=== PATIENT | female | born 1985 | race Caucasian/White ===

== ENCOUNTER → 2023-02-14 11:36 | Outpatient (CLI) | payer OTHER, SELFPAY ==
--- NOTE | ~2023-02-14 | US_ITS ---
Thyroid ultrasound. Clinical History: Enlarged thyroid gland Findings: Real-time sonography of the thyroid gland was performed. The right lobe measures 4.4 x 1.4 x 1.4 cm. The left lobe measures 4.0 x 1.4 x 1.4 cm. The isthmus is 2 mm in AP diameter. There is a hypoechoic solid nodule at the posterior aspect of the left upper pole. Impression: Subcentimeter thyroid nodule, as above, for which no further follow-up is required.. Reviewed, dictated and finalized at location M. [facility] PHLEBOTOMIST PART TIME Impression: Subcentimeter thyroid nodule, as above, for which no further follow-up is requi red..
== END ==
PROVIDERS: PCP Nurse Practitioner; Visit Provider Nurse Practitioner
DX: E04.9 Nontoxic goiter, unspecified (principal)
CPT/HCPCS: 76536

== ENCOUNTER 2024-09-17 15:58 | Emergency (ER) | payer OTHER, SELFPAY ==
--- NOTE | ~2024-09-17 | XR_ITS ---
EXAMINATION: XR chest 2V 09/17/2024 16:23 INDICATION: Cough and shortness of breath PROCEDURE: 2 view chest COMPARISON: No prior studies for comparison. FINDINGS: The lungs are clear. The cardiomediastinal silhouette is within normal limits. There are no pleural effusions. There is no pneumothorax suspected. IMPRESSION: 1: NO ACUTE CARDIOPULMONARY DISEASE. Reviewed, dictated and finalized at location A.
--- OUTSIDE RECORDS SUMMARY | 2024-09-17 16:01 | XMS_ITS | Clinical Summary ---
Author Organization [facility] Address [facility] [place] [address] Care Team Providers Care Coordinate Measuring Machine Operator Name Role Phone Summer Deleon NP Primary Care Provider [phone] Allergies No known active allergies Medications intrauterine copper (PARAGARD) IUD 1 each by Intrauterine route once. Active melatonin 5 MG tablet Take 1 tablet (5 mg total) by mouth nightly as needed. Active cranberry 450 MG Tab tablet Take 1 tablet (450 mg total) by mouth. Active Ascorbic Acid (VITAMIN C OR) Activ e VITAMIN D OR Active APPLE CIDER VINEGAR OR Active escitalopram (LEXAPRO) 20 MG tabletIndicati ons:Anxiety and depression TAKE 1 TABLET(20 MG) BY MOUTH DAILY 90 tablet 1 02/18/20 24 Active metoprolol tartrate (LOPRESSOR) 25 MG tabletIndicati ons:Palpitatio ns TAKE 1 TABLET(25 MG) BY MOUTH TWICE DAILY 30 tablet 07/31/19 25 Active buPROPion XL (WELLBUTRIN XL) 300 MG 24 hr tabletIndicati ons:Anxiety and depression Take 1 tablet (300 mg total) by mouth daily. 30 tablet 07/31/19 25 Active traZODone (DESYREL) 100 MG tabletIndicati ons:Insomnia, unspecified type Take 1 tablet (100 mg total) by mouth nightly at bedtime. 30 tablet 07/31/19 25 Active cariprazine (VRAYLAR) 1.5 MG capsuleIndicat ions:Severe recurrent major depression without psychotic features (CMS/HCC HHS/HCC) Take 1 capsule (1.5 mg total) by mouth daily. 90 capsule 1 09/03/19 25 Active lisinopril (PRINIVIL) 5 MG tabletIndicati ons:Hypertensi on, unspecified type Take 1 tablet (5 mg total) by mouth daily. 90 tablet 1 09/03/19 25 Active omeprazole (PRILOSEC) 20 MG capsuleIndicat ions:Gastroeso phageal reflux disease without esophagitis Take 1 capsule (20 mg total) by mouth daily. 90 capsule 1 09/04/19 25 Active naltrexone (DEPADE) 50 MG tabletIndicati ons:Class 3 severe obesity with body mass index (BMI) of 40.0 to 44.9 in adult ([facility]) Take 0.5 tablets (25 mg total) by mouth daily. 90 tablet 1 09/16/19 25 Active topiramate (TOPAMAX) 25 MG tabletIndicati ons:Class 3 severe obesity with body mass index (BMI) of 40.0 to 44.9 in adult ([facility]) Take 1 tablet (25 mg total) by mouth 2 (two) times daily. 180 tablet 1 09/16/19 25 Active omeprazole (PRILOSEC) 20 MG capsuleIndicat ions:Gastroeso phageal reflux disease without esophagitis TAKE 1 CAPSULE(20 MG) BY MOUTH DAILY 90 capsule 02/01/20 24 2024 Discontinued(R eorder) lisinopril (PRINIVIL) 5 MG tabletIndicati ons:Hypertensi on, unspecified type Take 1 tablet (5 mg total) by mouth daily. 30 tablet 07/31/19 25 2024 Discontinued(R eorder) cariprazine (VRAYLAR) 1.5 MG capsuleIndicat ions:Severe recurrent major depression without psychotic features ([facility]) Take 1 capsule (1.5 mg total) by mouth daily. 30 capsule 08/05/19 25 2024 Discontinued(R eorder) lisinopril (PRINIVIL) 5 MG tabletIndicati ons:Hypertensi on, unspecified type Take 1 tablet (5 mg total) by mouth daily. 30 tablet 09/03/19 25 2024 Discontinued Active Problems Problem Noted Date Diagnosed Date Class 3 severe obesity with body mass index (BMI) of 40.0 to 44.9 in adult 08/31/2024 Overview (08/31/2024): Pt overweight, Not eating well or exercising. Assessment & Plan (08/31/2024 11:46 PM CDT): Discussed jagjit loss options such as Semagluatide, Tirzepatide or can try and add on naltrexone or Topamax. Pt will check with her insurance about semaglutide or tirzepatide We discussed to help with weight loss is to try intermittent fasting. Starting with 12 hours. Recommend consuming half body weight of protein per day. Increasing water in diet, Work on limited processed food, sugar, and limit carbohydrates. Increase fresh fruit and whole fresh vegetables in diet. At risk for obstructive sleep apnea 08/31/2024 Overview (08/31/2024): Has been diagnosed many [place]. Pt does have morning headaches, dry mouth, snores, does not feel rested. Assessment & Plan (08/31/2024 11:44 PM CDT): Recommend retesteing for ROSALIO at this time. The patient should maintain good sleep hygiene techniques, maintain a consistent sleep/wake schedule with adequate hours of sleep, and avoid hazardous activities when sleepy. The patient should be cautioned about factors that may potentially exacerbate snoring and sleep-related problems, such as ACCOUNT RESOLUTION SPECIALIST depressants, especially at bedtime. Tachycardia 08/31/2024 Assessment & Plan (08/31/2024 11:56 PM CDT): Pt to increase metoprolol from 25mg daily to 25mg twice a day or 50mg daily. Anemia, unspecified type 02/28/2023 Mixed hyperlipidemia 02/28/2023 Overview (08/31/2024): Chronic issue. Managed by diet alone but diet has been poor. Assessment & Plan (08/31/2024 11:42 PM CDT): Will recheck lipid panel fasting. Encourage following a healthy well balance diet. Limit saturated and trans fats. Encourage to get plenty of lean meats in your diet and grilled fish. Recommend eating at least 2 servings of fruits and vegetables per day. Encourage to limit sugar, processed foods, and large amount of carbohydrates. Hypertension, unspecified type 02/28/2023 Overview (08/31/2024): Chronic condition. Taking lisinipril 5mg daily and metoprolol 25mg daily. Denies chest pain, palpitations, shortness of breath, dizziness, lightheadedness or lower extremity edema. Denies any orthopnea or PND. Assessment & Plan (08/31/2024 11:40 PM CDT): Chronic condition. Pulse elevated. Pt to increase metoprolol from 25mg to 25mg BID or 50mg daily. Had only been taking 25mg daily. Goal for BP to stay below 140/90 and pulse to stay below 90. Encourage lifestyle modifications to include healthy eating, decrease salt and caffeine in diet, routine exercise, and weight loss. Anxiety and depression 12/13/2021 Overview (08/31/2024): Chronic condition. Doing well with bupropion XL 300 mg daily, Escitalopram 20mg daily, and Vraylar 1.5mg daily later added for major depressive symptoms and has been doing well with use. Denies SI/HI. Assessment & Plan (08/31/2024 11:58 PM CDT): Chronic condition, controlled pt reports even though PHQ-9 and BRADLY-7 are still elevated. No changes needed at this time. Encourage stress relieving activities. Insomnia, unspecified type 12/13/2021 Overview (08/31/2024): Chronic condition. Taking Trazodone and melatonin at night to help her sleep. Doing well with use. Assessment & Plan (08/31/2024 11:50 PM CDT): Chronic condition controlled. Avoid any stronger sleep aid. Going to retest for ROSALIO. No changes at this time. Gastroesophageal reflux disease without esophagi tis 12/13/2021 Overview (08/31/2024): Chronic condition. Taking Omeprazole 20mg daily. Has tried off of it but symptoms come back. Diet is poor. Assessment & Plan (08/31/2024 11:47 PM CDT): GERD education discussed. Avoid eating 2- 3 hours prior to bedtime. Sleep with HOB up to prevent heartburn. Avoid foods/drinks that trigger reflex like spicy/acidic foods, soda, coffee. Encourage weight loss as well. Discussed trailing off PPI after taking for 6-8 weeks and reassess symptoms. If improved may only need as needed tums or Famotide 20mg once or twice day. Resolved Problems Problem Noted Date Diagnosed Date Resolved Date Chronic fatigue 11/28/2023 08/31/2024 Decreased GFR 02/28/2023 08/31/2024 Hair loss 02/28/2023 08/31/2024 Prediabetes 02/28/2023 11/28/2023 Palpitations 12/13/2021 08/31/2024 Screening for lipoid disorders 12/13/2021 12/19/2021 Obesity (BMI 35.0-39.9 without comorbidity) 12/13/2021 08/31/2024 Encounters Date Type Department Care Team Description 09/12/[address] [place] [address] Summer Deleon NP Medication Request 09/03/2024 Orders Only [place] [id number] [facility] [address] [place] [address] Edita Cramer MA 09/02/2024 Orders Only [place] [id number] [facility] [address] [place] [address] Edita Cramer MA 08/31/2024 Results Follow-Up [place] [id number] [facility] [address] [place] [address] Summer Deleon NP HEMOGLOBIN, GLYCOSYLATED, TSH W/REFLEX, LIPID PANEL, Additional followed-up results: 4 08/28/2024 2:20 PM CDT Office Visit [place] [id number] [facility] [address] [place] [address] Summer Deleon NP Annual (Patient presents for an adult routine exam) 08/28/2024 Travel 08/04/2024 Telephone [facility] [place] [id number] [facility] [address] [place] [address] Summer Deleon NP Medication 07/07/2024 Orders Only [facility] [address] [facility] [address] [place] [address] Edita Cramer MA from Last 3 Months Immunizations Immunization Administration Dates Next Due Influenza Adult (Generic) 01/02/2023,12/24/2021, 12/23/2020 Family History Medical History Relation Comments Anxiety Father Depression Father Hypertension Father Depression Mother Hypertension Mother anxiety Mother bipolar Sister Relation Status Comments Father Mother Sister Social History Tobacco Use Types Packs/Day Years Used Date Smoking Tobacco: Never Passive Smoke Exposure: Past Smokeless Tobacco: Never Tobacco Cessation:Counseling Given: No Alcohol Use Standard Drinks/Week Comments Yes 5 (1 standard drink = 0.6 oz pur e alcohol) 1-2 times weekly PHQ-2 Answer Date Recorded Patient Health Questionnaire-2 Score 3 08/28/2024 Comments No Sex and Gender Information Value Date Recorded Sex Assigned at Female 08/28/2024 2:23 PM CDT Legal Sex Female 3:18 PM CDT Gender Identity Female 08/28/2024 2:23 PM CDT Sexual Orientation Not on file Last Filed Vital Signs Vital Sign Reading Time Taken Comments Blood Pressure 128/84 08/28/2024 2:25 PM CDT Pulse 112 08/28/2024 2:25 PM CDT Temperature 36.7 C (98 F) 08/28/2024 2:25 PM CDT Respiratory Rate 18 08/28/2024 2:25 PM CDT Oxygen Saturation 98% 08/28/2024 2:25 PM CDT Inhaled Oxygen Concentration - - Weight 116.8 kg (257 lb 9.6 oz) 08/28/2024 2:25 PM CDT Height 170.2 cm (5' 7) 08/28/2024 2:25 PM CDT Body Mass Index 40.35 08/28/2024 2:25 PM CDT Plan of Treatment Upcoming Encounters Date Type Department Care Team (Late st Contact Info) Description 12/02/2024 3:00 PM CDT Office Visit [facility] [place] [address] [facility] [address] [place] [address] Summer Deleon, MARCELLE [address] [place] [address] Health Maintenance Due Date Last Done Comments Cervical Cancer Screening Pa p Smear (Age 30 to 64) Every 3 Years 1986 DTaP, Tdap and Td Vaccines ( 1 - Tdap) 2005 Hepatitis B Vaccines (1 of 3 - 19+ 3-dose series) 2005 HPV Vaccines (1 - 3-dose SCD M series) 2013 Cervical Cancer Screening Pa p with HPV Testing (Age 30 to 64) Every 5 Years 2016 COVID-19 Vaccine ( - 2023-2 5 season) 2023 Annual Physical 08/28/2025 08/28/2024, 02/08/2023, 12/13/2021 Cervical Cancer Screening with HPV 08/28/2025 Postponed from 07/04 (Patient Refused) Hepatitis C Completed 12/22/2021 PHQ-2 (Physician [place]) Completed 08/28/2024 Meningococcal B Vaccine Aged Out No l onger eligible based on patient's age to complete this topic Meningococcal Vaccine Aged Out No marilee andriy eligible based on patient's age to complete this topic Pneumococcal Vaccine: Pediatrics (0 to 5 Years) and At-Risk Patients (6 to 49 Years) Aged Out No longer eligible b ased on patient's age to complete this topic RSV Immunizations Under 20 Months Aged Out No longer eligible b ased on patient's age to complete this topic Procedures Procedure Name Priority Date/Time Associated Diagnosis Comments COLLECTION VENOUS BLOOD VENIPUNCTURE Routine 08/28/2024 3:19 PM CDT Screening for endocrine, metabolic and immunity disorder IRON SAT PANEL (IRON,IBC,%SAT) Routine 08/28/2024 3:19 PM CDT Anemia, unspecified type FERRITIN Routine 08/28/2024 3:19 PM CDT Anemia, unspecified type CBC W/DIFF AUTOMATED Routine 08/28/2024 3:19 PM CDT Screening for endocrine, metabolic and immunity disorder COMPREHENSIVE METABOLIC PANEL Routine 08/28/2024 3:19 PM CDT Screening for endocrine, metabolic and immunity disorder LIPID PANEL Routine 08/28/2024 3:19 PM CDT Screening for hyperlipidemia TSH W/REFLEX Routine 08/28/2024 3:19 PM CDT Screening for thyroid disorder HEMOGLOBIN, GLYCOSYLATED Routine 08/28/2024 3:19 PM CDT Screening for endocrine, metabolic and immunity disorder HEPATITIS C ANTIBODY Routine 12/22/2021 10:10 AM CDT Need for hepatitis C screening test from Last 3 Months or Most Recently Relevant to Health Maintenance Results * TSH W/REFLEX (08/28/2024 3:19 PM CDT) TSH 2.392 0.358 - 3.740 uIU/ML 08/29/2024 10:15 AM CDT [facility] 08/28/2024 3:19 PM CDT us Summer Deleon NP LABORATORY Final Res ult [facility] [address] [place] [address], * (ABNORMAL) HEMOGLOBIN, GLYCOSYLATED (08/28/2024 3:19 PM CDT) HGB A1C 5.5 4.5 - 6.2 % 08/29/2024 10:27 AM CDT [facility] ESTIMATED AVG GLUCOSE 111(H) 74 - 106 MG/DL 08/29/2024 10:27 AM CDT [facility] 08/28/2024 3:19 PM CDT Summer Deleon ENVELOPE FOLDING MACHINE OPERATOR LABORATORY Final Res ult Performing Organization Address [facility]/ZIP Co de Phone Number [facility] [address] [place] [address], [place] [phone] * (ABNORMAL) IRON SAT PANEL (IRON,IBC,%SAT) (08/28/2024 3:19 PM CDT) IRON 31(L) 50 - 170 MCG/DL 09/01/2024 12:54 PM CDT [facility] IRON BINDING CAPACITY 400 250 - 450 MCG/DL 09/01/2024 12:54 PM CDT [facility] IRON SATURATION 8 % 12:54 PM CDT [facility] Comment:REFERENCE RANGE NOT ESTABLISHED 08/28/2024 3:19 PM CDT Summer Deleon ENVELOPE FOLDING MACHINE OPERATOR LABORATORY Final Res ult Performing Organization Address [facility] Co de Phone Number [facility] [address] [place] [address], [place] [phone] * (ABNORMAL) COMPREHENSIVE METABOLIC PANEL (08/28/2024 3:19 PM CDT) SODIUM S/P/B 138 136 - 145 MMOL/L 08/29/2024 10:15 AM CDT [facility] POTASSIUM S/P/B 4.3 3.5 - 5.1 MMOL/L 08/29/2024 10:15 AM CDT [facility] CHLORIDE S/P/B 101 98 - 107 MMOL/L 08/29/2024 10:15 AM CDT [facility] CO2 27.2 21 - 32 MMOL/L 08/29/2024 10:15 AM CDT [facility] GLUCOSE 93 70 - 99 MG/DL 08/29/2024 10:15 AM CDT [facility] BUN 7 7 - 18 MG/DL 08/29/2024 10:15 AM [facility] CREATININE S/P/B 0.85 0.55 - 1.02 MG/DL 08/29/2024 10:15 AM T [facility] CALCIUM S/P/B 8.2(L) 8.4 - 10.5 MG/DL 08/29/2024 10:15 AM CDT [facility] BILIRUBIN TOTAL S/P/B 0.3 0.2 - 1.0 MG/DL 08/29/2024 10:15 AM T [facility] ALKALINE PHOSPHATASE S/P/B 92 37 - 98 U/L 08/29/2024 10:15 AM T [facility] AST 47(H) 15 - 37 U/L 08/29/2024 10:15 AM CDT [facility] ALT 51 14 - 59 U/L 08/29/2024 10:15 AM T [facility] TOTAL PROTEIN S/P/B 6.4 6.4 - 8.2 G/DL 08/29/2024 10:15 AM T [facility] ALBUMIN S/P/B 3.2(L) 3.4 - 5.0 G/DL 08/29/2024 10:15 AM [facility] ANION GAP 9.8 5 - 15 MMOL/L 08/29/2024 10:15 AM CDT [facility] Comment:REFERENCE RANGE NOT ESTABLISHED OSMOLALITY (CALC) 284 MOSM/KG 025 10:15 AM T [facility] Comment:REFERENCE RANGE NOT ESTABLISHED GFR ESTIMATE 90(L) >90 ML/MIN/1. 73 M2 08/29/2024 10:15 AM T [facility] GFR NOTES GFR REFERENCE S: 08/29/2024 10:15 AM CDT [facility] Comment: THE ESTIMATED GFR IS CALCULATED USING THE 2020 CKD-EPI EQUATION. THE FOLLOWING CATEGORIES FOR GRADING RENAL FUNCTION ARE RECOMMENDED BY THE INTERNATIONAL SOCIETY OF NEPHROLOGY (KDIGO 2012 CLINICAL PRACTICE GUIDELINE). G1,NORMAL OR HIGH: >89 ml/min/1.73 m2 G2,MILDLY DECREASED: 60-89 ml/min/1.73 m2 G3A,MILDLY TO MODERATELY DECREASED: 45-59 ml/min/1.73 m2 G3B,MODERATELY TO SEVERELY DECREASED: 30-44 ml/min/1.73 m2 G4,SEVERELY DECREASED: 15-29 ml/min/1.73 m2 G5,KIDNEY FAILURE: <15 ml/min/1.73 m2 08/28/2024 3:19 PM CDT us Summer Deleon NP LABORATORY Final Res ult [facility] [address] [place] [address], * (ABNORMAL) LIPID PANEL (08/28/2024 3:19 PM CDT) CHOLESTEROL 228(H) <200 MG/DL 08/29/2024 10:15 AM CDT [facility] TRIGLYCERIDES 250(H) <150 MG/DL 08/29/2024 10:15 AM CDT [facility] HDL 38(L) >40 MG/DL 08/29/2024 10:15 AM CDT [facility] LDL-C 140(H) <100 MG/DL 08/29/2024 10:15 AM CDT [facility] VLDL CALCULATION 50(H) 5 - 28 MG/DL 08/29/2024 10:15 AM CDT [facility] CHOL/HDL RATIO 6.0(H) 0.0 - 4.0 08/29/2024 10:15 AM CDT [facility] LDL/HDL 3.7(H) 0.41 - 2.13 08/29/2024 10:15 AM CDT [facility] NON HDL CHOLESTEROL 190(H) <140 MG/DL 08/29/2024 10:15 AM CDT [facility] 08/28/2024 3:19 PM CDT us Summer Deleon ENVELOPE FOLDING MACHINE OPERATOR LABORATORY Final Res ult [facility] [address] [place] [address], * (ABNORMAL) CBC W/DIFF AUTOMATED (08/28/2024 3:19 PM CDT) WBC 9.64 4.00 - 10.80 x10'3/uL 08/29/2024 8:26 AM CDT [facility] RBC 4.47 4.10 - 5.40 x10'6/uL 08/29/2024 8:26 AM CDT [facility] HGB 11.5(L) 12.0 - 16.0 G/DL 08/29/2024 8:26 AM CDT [facility] HCT 37.1 36.0 - 47.0 % 08/29/2024 8:26 AM CDT [facility] MCV 83.0 78.0 - 100.0 FL 08/29/2024 8:26 AM CDT [facility] MCH 25.7(L) 27.0 - 31.0 PG 08/29/2024 8:26 AM CDT [facility] MCHC 31.0(L) 33.0 - 36.0 G/DL 08/29/2024 8:26 AM CDT [facility] RDW 14.7(H) 11.5 - 14.5 % 08/29/2024 8:26 AM CDT [facility] PLT 226 150 - 350 x10'3/uL 08/29/2024 8:26 AM CDT [facility] MPV 9.8 7.4 - 10.4 FL 08/29/2024 8:26 AM CDT [facility] DIFFERENTIAL TYPE AUTOMATED DIFFERENTIAL 08/29/2024 8:26 AM CDT [facility] NEUTROPHILS % 77.5 % 08/29/2024 8:26 AM CDT [facility] LYMPHOCYTES % 14.3 % 08/29/2024 8:26 AM CDT [facility] MONOCYTES % 6.2 % 08/29/2024 8:26 AM CDT [facility] EOSINOPHILS % 0.3 % 08/29/2024 8:26 AM CDT [facility] BASOPHILS % 0.4 % 08/29/2024 8:26 AM CDT [facility] IMMATURE GRANS % 1.3 % 08/29/2024 8:26 AM CDT [facility] ABS. NEUTROPHILS 7.46 1.60 - 8.30 x10'3/uL 08/29/2024 8:26 AM CDT [facility] ABS. LYMPHOCYTES 1.38 0.80 - 4.70 x10'3/uL 08/29/2024 8:26 AM CDT [facility] ABS. MONOCYTES 0.60 0.00 - 1.50 x10'3/uL 08/29/2024 8:26 AM CDT [facility] ABS. EOSINOPHILS 0.03 0.00 - 0.40 x10'3/uL 08/29/2024 8:26 AM CDT [facility] ABS. BASOPHILS 0.04 0.00 - 0.20 x10'3/uL 08/29/2024 8:26 AM CDT [facility] ABS. IMMATURE GRANULOCYTES 0.13(H) 0.00 - 0.03 x10'3/uL 08/29/2024 8:26 AM CDT [facility] 08/28/2024 3:19 PM CDT Summer Deleon ENVELOPE FOLDING MACHINE OPERATOR LABORATORY Final Res ult Performing Organization Address [facility] Co de Phone Number [facility] [address] [place] [address], * FERRITIN (08/28/2024 3:19 PM CDT) [facility] FERRITIN 24.0 8 - 252 NG/ML 09/01/2024 12:54 PM CDT [facility] 08/28/2024 3:19 PM CDT Summer Deleon ENVELOPE FOLDING MACHINE OPERATOR LABORATORY Final Res ult Performing Organization Address [facility] [[email or web address]] de Phone Number [facility] [address] [place] [address], [place] [phone] * HEPATITIS C ANTIBODY (12/22/2021 10:10 AM CDT) [facility] HEPATITIS C AB NON-REACTI VE NON-REACT PACO 12/22/2021 8:10 PM CDT [facility] Comment: ANTIBODIES TO HCV NOT DETECTED. DOES NOT EXCLUDE THE POSSIBILITY OF EXPOSURE TO HCV. 12/22/2021 10:1 0 AM CDT Summer Deleon ENVELOPE FOLDING MACHINE OPERATOR LABORATORY Final Res ult Performing Organization Address [facility] Co de Phone Number [facility] [address] [place] [address], [place] [phone] from Last 3 Months or Most Recently Relevant to Health Maintenance Insurance A [place]UR[place] [id number] [employer] Care Teams Coordinate Measuring Machine Operator Relationship Specialty Start Date End Date Summer Deleon NP [address] [place] [address] [place] [id number] PCP - General NURSE PRACTITIONER 12/09/21
--- OUTSIDE RECORDS SUMMARY | 2024-09-17 16:01 | XMS_ITS | Encounter Summary ---
Author Organization [facility] Address [address] [place] [address] Care Team Providers Care Extension Service Specialist Name Role Phone Summer Deleon NP Primary Care Provider [phone] Encounter Details Date Type Department Care Team ([facility] Contact Info) Description 08/31/2024 Results Follow-Up [facility] [address] [address] Summer Deleon NP [address] [address] HEMOGLOBIN, GLYCOSYLATED, TSH W/REFLEX, LIPID PANEL, Additional followed-up results: 4 Social History Tobacco Use Types Packs/Day Years Used Date Smoking Tobacco: Never Passive Smoke Exposure: Past Smokeless Tobacco: Never Alcohol Use Standard Drinks/Week Comments Yes 5 [...] PM CDT Sexual Orientation Not on file documented as of this encounter Plan of Treatment Upcoming Encounters Date Type Department Care Team ([facility] Contact Info) Description 12/02/2024 3:00 PM CDT Office Visit [facility] [address] [facility] [address] [place] [address] Summer Deleon NP [address] [place] [address] documented as of this encounter Visit Diagnoses Not on filedocumented in this encounter Additional Health Concerns Assessment Noted Time PHQ-9 Depression Total Score: 14 025 2:28 PM CDT documented as of this encounter Care Teams Extension Service Specialist Relationship Specialty Start Date End Date Summer Deleon NP [address] [place] [address] PCP - General NURSE PRACTITIONER 12/09/21 documented as of this encounter
--- OUTSIDE RECORDS SUMMARY | 2024-09-17 16:01 | XMS_ITS | Patient Health Record ---
Author Organization [facility] Address [address] [place] [id number] Care Team Providers Care Complaint Clerk Name Role Phone Renea Mansfield Primary Care Provider [phone] Allergies Allergen (clinical drug ingredient) Drug/Non Drug Allergy documented on EMR Reaction Allergy Type Onset Date Status Information temporarily unavailable No Environmental Allergies (uncoded) Unknown Allergy Active Information temporarily unavailable No Known Drug Allergies (uncoded) Unknown Allergy Active Information temporarily unavailable No Known Food Allergies (uncoded) Unknown Allergy Active Reason For Referral No Information Medications Medication SIG (Take, Route, Fr equency, Duration) Notes Start Date End Date Status Omeprazole 20 MG TAKE [address] [facility] DAILY for 30 Active busPIRone HCl 10 MG 1 tablet Orally Twic e a day PRN for 30 days 04/17/2016 Active Social History Tobacco Use: Social History Observation Description Date Details (start date - stop date) Never Smoker NA - NA Tobacco Use/Smoking Question Answer Notes Are you a nonsmoker Problems Problem Type SNOMED Code ICD Code Onset Dates Problem Status W/U Status Risk Notes Problem Body mass index 30.00 to 34.99 (99589570896712 7) Body mass index (BMI) 31.0-31.9, adult (Z68.31) Active confirmed Problem Anxiety (65898061) Anxiety (F41.9) Active confirmed Problem Esophageal reflux (191131249) Esophageal reflux (K21.9) Active confirmed Problem Dizzy (995153315) Dizzy (R42) Active confirmed Problem Disorder of adrenal gland (06624961) Disorder of adrenal gland (E27.9) Active confirmed Problem Sprain of ankle (42494564) Unspecified site of ankle sprain and strain (845.00) Active confirmed (PHONG) Plan Of Treatment Pending Test Test Name Order Date CBC With Differential/Platelet 6 Pap IG, HPV-hr 04/17/2016 CMP12+LP 01/04/2016 EKG and interperate ( ecg ) 01/04/2016 Insurance Providers Payer Name Payer Address Payer Phone Subscriber Number Group Number Insured Name Patient Relationship to Insured Coverage Start Date Coverage End Date [employer] [address] [place] [address] [phone] [id number] Andrew Antony Self - patient is the insured Medical (General) History Medical History History ICD Code Ankle strain right initial encounter: IC [id number] Reflux Surgical History Surgery Date(Month/Year)
--- OUTSIDE RECORDS SUMMARY | 2024-09-17 16:01 | XMS_ITS | Clinical Summary ---
Author Organization [employer] [facility] Address [address] Rodriguez: Epic Prelude ADT [place] [address] Care Team Providers Care Furnace Hand Name Role Phone Unavailable Primary Care Provider Unavailabl e Social History Tobacco Use Types Packs/Day Years Used Date Smoking Tobacco: Never Assessed Comments Unknown Sex and Gender Information Value Date Recorded Sex Assigned at Not on file Legal Sex Female 10:43 PM CDT Gender Identity Not on file Sexual Orientation Not on file Plan of Treatment Health Maintenance Due Date Last Done Comments HPV VACCINES (1 - 3-dose series) 2001 DTAP/TDAP/TD VACCINES (1 - Tdap) 2005 HEPATITIS B VACCINES (1 of 3 - 19+ 3-dose series) 10/2005 HPV/Cotest (21-29) 07/05/2007 CERVICAL CANCER SCREENING 2016 HPV/Cotest (30-65) 2016 PAP SMEAR 2016 INFLUENZA VACCINE (#1) 2024
--- OUTSIDE RECORDS SUMMARY | 2024-09-17 16:01 | XMS_ITS | Patient Health Record ---
Author Organization [facility] Address [address] [place] [address] Care Team Providers Care Family Nurse Name Role Phone RUPERTO Quezada Primary Care Provider [phone] Reason For Referral No Information Medications Medication SIG (Take, Route, Frequency, Duration) Notes Start Date End Date Status Escitalopram Oxalate 20 MG TAKE 1 TABLET BY MOUTH EVERY DAY for 30 Active Tobramycin 0.3 % 1 drop into affected eye Ophthalmic every 6 hrs for 5 days 06/11/2020 Active Claritin 10 MG 1 tablet Orally Once a day for 30 day(s) 01/28/2019 Active Omeprazole 20 MG TAKE 1 CAPSULE BY [facility] ONCE DAILY 30 MINUTES BEFORE MORNING for 30 Active Metoprolol Tartrate 25 MG 1 tablet with food Orally Twice a day for 90 days Active Ciclopirox 8 % USE 1 APPLICATION TO AFFECTED AREA ONCE DAILY *REMOVE ONCE A WEEK* for 30 Not-Taking Penlac 8 % 1 application to affected area Externally Apply Once a day, remove once a week for 6 months days 07/11/2019 Not-Taking traZODone HCl 100 MG 1 tablet at bedtime Orally Once a day for 90 days Active Social History Tobacco Use: Social History Observation Description Date Details (start date - stop date) Never Smoker NA - NA Sex Assigned At : Social History Observation Description Sex Assigned At Female Previous Version Tobacco Screening Question Answer Notes Are you a nonsmoker Alcohol Screen (Audit-C) Question Answer Notes Did you have a drink contain ing alcohol in the past year? Yes How often did you have a dri nk containing alcohol in the past year? Monthly or less (1 point) How many drinks did you have on a typical day when you were drinking in the past year? 1 or 2 drinks (0 point) How often did you have 6 or more drinks on one occasion in the past year? Never (0 point) Points 1 Interpretation Negative Tobacco use other than smoking: Question Answer Notes Are you an other tobacco user? No Section Notes: [facility] Problems Problem Type SNOMED Code ICD Code Onset Dates Problem Status W/U Status Risk Notes Problem 91294712 Generalized anxiety disorder (F41.1) Active confirmed Other anxiety disorders Problem 898452407 Mixed hyperlipidemia (E78.2) Active confirmed Problem 649742796 Body mass index (BMI) of 36.0-36.9 in adult (Z68.36) Active confirmed Problem Gastroesophageal reflux disease (849301123) GERD without esophagitis (K21.9) Active confirmed Problem Palpitations (15344662) Heart palpitations (R00.2) Active confirmed Problem Obesity (193085153) Obesity (BMI 30-39.9) (E66.9) Active confirmed Problem Onychomycosis (398282318) Onychomycosis (B35.1) Active confirmed Problem 296609716 Insomnia, unspecified type (G47.00) Active confirmed Problem Anxiety (19652349) Anxiety (F41.9) Active confi rmed Problem 750014070 Seasonal allergies (J30.2) Active confirmed Problem 52209149 Obstructive sleep apnea (G47.33) Active confirmed Problem 44997279 Dysphagia, unspecified type (R13.10) Active confirmed Problem 818876356 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 Plan Of Treatment Pending Test Test Name Order Date BEHAV CHNG SMOKING 3-10 MIN 07/02/2019 COMPREHENSIVE METABOLIC PANEL W/O eGFR 1 03/31/2018 CBC (INCLUDES DIFF/PLT) WITH Peripheral SMEAR REVIEW 07/01/2019 TSH W/REFLEX TO FT4 07/01/2019 SKIN BIOPSY, (2 JARS) 5603-6 03/12/2018 Electrocardiogram 03/11/2019 SHAVE SKIN LESION 03/12/2018 TOBACCO USE ASSESSED 07/11/2019 TOBACCO USE ASSESSED 07/15/2019 TOBACCO USE ASSESSED 09/24/2019 TOBACCO NON-USER 09/24/2019 TOBACCO NON-USER 07/15/2019 TOBACCO NON-USER 07/11/2019 TOBACCO NON-USER 01/07/2019 TOBACCO NON-USER 07/01/2019 SYS BP 130 - 139MM HG 07/02/2019 SYS BP 130 - 139MM HG 01/07/2019 SYS BP 130 - 139MM HG 01/28/2019 SYS BP 130 - 139MM HG 07/15/2019 SYST BP >/= 140 MM HG 07/01/2019 SYST BP < 130 MM HG 09/24/2019 SYST BP < 130 MM HG 07/11/2019 DIAST BP 80-89 MM HG 01/28/2019 DIAST BP 80-89 MM HG 07/01/2019 DIAST BP < 80 MM HG 07/11/2019 DIAST BP < 80 MM HG 07/02/2019 DIAST BP < 80 MM HG 01/07/2019 DIAST BP < 80 MM HG 07/15/2019 DIAST BP < 80 MM HG 09/24/2019 DME SUPPLY OR ACCESSORY, NOS 02/28/2018 ALCOHOL/SUBS INTERV 15-30 MIN 01/28/2019 ALCOHOL/SUBS INTERV 15-30 MIN 07/01/2019 ALCOHOL/SUBS INTERV 15-30 MIN 07/11/2019 Functional Status assessed and documente d 01/28/2019 Falls Risk Assessment Documented 019 Medication List Documented in medical re cord 07/02/2019 Pain severity Quantified- No pain presen t 07/02/2019 Pain severity Quantified- No pain presen t 07/01/2019 Pain severity Quantified- No pain presen t 01/28/2019 Pain severity Quantified- No pain presen t 01/07/2019 Pain severity Quantified- No pain presen t 07/15/2019 Pain severity Quantified- No pain presen t 09/24/2019 Advance Care Planning Discussion Michelle rios in the medical record 01/07/2019 Advance Care Planning Discussion Michelle rios in the medical record 07/01/2019 Screening for depression documented as n egative, so f/u is not required 01/28/2019 Medication Review 01/28/2019 Medication Review 01/07/2019 Medication Review 07/01/2019 Medication Review 07/02/2019 Medication Review 07/15/2019 Medication Review 09/24/2019 Medication Review 07/11/2019 Allergies Reviewed 07/11/2019 Allergies Reviewed 09/24/2019 Allergies Reviewed 07/15/2019 Allergies Reviewed 07/02/2019 Allergies Reviewed 07/01/2019 Allergies Reviewed 01/07/2019 Allergies Reviewed 01/28/2019 Insurance Providers Payer Name Payer Address Payer Phone Subscriber Number Group Number Insured Name Patient Relationship to Insured Coverage Start Date Coverage End Date [facility] [address] [address] [place] [id number] Andrew Antony Self - patient is the insured [employer] [facility] [employer] [address] [place] [id number] Andrew Antony Self - patient is the insured Medical (General) History Medical History History ICD Code palpitations anxiety Gerd Surgical History Surgery Date(Month/Year) Hospitalization History Reason Date(Month/Year)
[2024-09-17 16:05] VITALS: BP 149/103; PULSE 120; RESP 16; TEMP 36.7; O2SAT 100
[2024-09-17 16:12] VITALS: O2SAT 100
--- NOTE | 2024-09-17 16:12 | ED_ITS ---
HPI - URI/Sore Throat General Chief Complaint: Upper Respiratory Infection Stated Complaint: cold symptoms/fever Time Seen by Provider: 09/17/24 16:15 Source: patient Mode of arrival: ambulatory Limitations: no limitations History of Present Illness HPI Narrative: Andrew is a 39 year old female patient presenting to the clinic today with c/o felt feverish, runny nose, sore throat, cough, nasal congestion, chest congestion, and shortness of breath x 4 days. Has no checked her temperature. Has taken dayquil for her symptoms Has been taking off work due to her symptoms and they told her she needed to be evaluated. Related Data Allergies Allergy/AdvReac Type Severity Reaction Status Date / Time No Known Allergies Allergy Verified 09/17/24 16:24 Review of Systems Review of Systems: Pertinent positives per HPI. Patient denies any rash, headache, visual changes, dizziness, palpitations, nausea, vomiting, diarrhea, constipation, abdominal pain, or any urinary issues. PMFSH Comments At the time of my signature, I reviewed and agree with the nursing past medical, surgical, social, and family history. There is no relevant family history pertinent to the patient complaint. Exam Narrative: General: Well-developed, well nourished, in no apparent distress Head: Normocephalic, atraumatic Eyes: Pupils equally round and reactive to light bilaterally, EOM intact, sclera and conjunctive clear, no discharge, lids normal Ears: TMs intact and clear, ear canals clear, no drainage, grossly hearing normal. Nose: Nares patent, clear nasal discharge, no inflammation, no sinus tenderness. Mouth: Oral pharynx red without lesions or masses, good dentition, MMM. Postnasal drip Neck: Supple, trachea midline, no enlargement of anterior or posterior cervical nodes, no thyroid masses or goiter palpable. Cardio: Regular rate and rhythm, s1 and s2 normal, no murmur appreciated. Resp: Expiratory wheezing over the right middle lobe, no rhonchi, rales, or rubs Course Course Emergency Course: Portions of this record may have been created with voice recognition software. Level of Care: Express Care Visit Vital Signs Vital signs: Vital Signs Temperature 36.7 C 09/17/24 16:05 Pulse Rate 120 H 09/17/24 16:05 Respiratory Rate 16 09/17/24 16:05 Blood Pressure 149/103 H 09/17/24 16:05 Pulse Oximetry 100 09/17/24 16:05 Oxygen Delivery Room Air 09/17/24 16:05 Temperature 36.7 C 09/17/24 16:05 Pulse Rate 120 H 09/17/24 16:05 Respiratory Rate 16 09/17/24 16:05 Blood Pressure 149/103 H 09/17/24 16:05 Pulse Oximetry 100 09/17/24 16:12 Oxygen Delivery Room Air 09/17/24 16:12 Vital signs reviewed MDM - URI/Sore Throat MDM Narrative Medical decision making narrative: At the time of visit patient is resting on the exam table. Patient appears to be nontoxic. States she is so sick. Patient appears anxious. Heart rates 120 in her blood pressure is elevated 149/103. Reporting some shortness of breath and chest discomfort with cough. States she has runny nose, sinus congestion, chest congestion, productive cough, and feeling feverish for the past 4 days. P atient is diaphoretic, appears acutely ill. Lung sounds have expiratory wheezing over the right middle lobe posteriorly. Wells criteria shows low risk for PE. SpO2 is 100% on room air. COVID, influenza, strep, and chest x-ray was ordered. Labs: COVID, influenza, and strep test were negative. We will send strep for culture. Diagnostics: Chest x-ray was performed and negative for any acute car diopulmonary process. Plan: I suspect patient has URI/pharyngitis/viral bronchitis. Prescription for albuterol inhaler was sent to the pharmacy. Supportive measures were discussed with the patient and they voiced understanding discharge instructions and agrees to treatment plan. Return precautions reviewed Wells criteria for PE: 1.5?points Low risk group: 1.3% chance of PE in an ED population. Another study assigned scores <=4 as ?PE Unlikely? and had a 3% incidence of PE. Differential Diagnosis Differential diagnosis: Likely upper respiratory infection, otitis media, sinusitis, viral infection, bronchitis, influenza, pharyngitis and other (Pleurisy, pneumonia, COVID, PE) Lab Data Labs: Lab Results 09/17/24 Range/Units 16:09 POC Influenza A Ag Negative (Negative) POC Influenza B Ag Negative (Negative) POC SARS CoV-2 Ag Negative (Negative) POC Grp A Strep Screen Negative (Negative) Discharge Plan Discharge Clinical Impression: Bronchitis Upper respiratory infection Qualifiers: URI type: unspecified URI Qualified Code(s): J06.9 - Acute upper respiratory infection, unspecified Pharyngitis Qualifiers: Pharyngitis/tonsillitis etiology: unspecified etiology Qualified Code(s): J02.9 - Acute pharyngitis, unspecified Patient Disposition: Home Condition: Stable Instructions: Antibiotic Form, Pharyngitis (ED), Acute Bronchitis (ED), Cold Symptoms (ED) Additional Instructions: COVID, influenza, and strep test were negative in the clinic today. Chest x-rays negative for any acute cardiopulmonary process. Take prescription medications only as prescribed-albuterol inhaler May take Coricidin HBP for cold/flu symptoms Increase fluids and stay well hydrated Tylenol/motrin for pain/fever Flonase and OTC antihistamines as directed Vicks vapor rub to open sinuses Sinus rinses for congestion Cepacol spray, cough drops, throat lozenges, warm tea with honey/lemon, gargle salt water to soothe throat BRAT diet for diarrhea Clear liquids x 24 hours then advance as tolerated for nausea/vomiting Go to the ED if you develop a worsening in your condition- high fever not controlled by Tylenol or Motrin, dehydration, weakness, lethargy, shortness of breath, or chest pain. Follow up with your PCP in 3-5 days if symptoms persist. Patient Language: Anguill[place] Prescriptions: New albuterol sulfate 90 mcg/actuation HFA aerosol inhaler 2 puff inhalation Q4-6H PRN (Reason: shortness of breath or wheezing) 30 Days Qty: 8.5 0RF Follow-up/Referrals: Pancho,AHSAN Samayoa [Primary Care Provider] - Stand Alone Forms: Work/School Release IP Time of Disposition: 16:58 Quality NIHSS Nursing Documentation ED NIHSS nursing documentation: reviewed/agree
[2024-09-17 16:28] LABS: EDCOVIDSCREEN Negative (Negative); EDINFLUASCREEN Negative (Negative); EDINFLUBSCREEN Negative (Negative)
[2024-09-17 16:29] LABS: EDSTREPNEGPOS1 Negative (Negative)
[2024-09-17 17:05] VITALS: BP 141/68; PULSE 115; RESP 20; O2SAT 95
== END 2024-09-17 17:05 | disposition home or self-care (01) ==
PROVIDERS: Emergency Provider Nurse Practitioner Family; PCP Nurse Practitioner
DX: J40 Bronchitis, not specified as acute or chronic (principal); J06.9 Acute upper respiratory infection, unspecified; J02.9 Acute pharyngitis, unspecified; Z20.822 Contact with and (suspected) exposure to COVID-19; I10 Essential (primary) hypertension; K21.9 Gastro-esophageal reflux disease without esophagitis
CPT/HCPCS: 71046; 87081; 87426; 87804; 87880; 99203; G0463

== ENCOUNTER 2024-10-03 13:30 | Emergency (ER) | payer OTHER, SELFPAY ==
--- NOTE | 2024-10-03 13:31 | ED_ITS ---
HPI - Ear Problem General Chief complaint: Ear Stated complaint: Bilateral Ear Pain Time Seen by Provider: 10/03/24 13:31 Source: patient Mode of arrival: ambulatory Limitations: no limitations History of Present Illness HPI Narrative: Patient is a 31-year-old female who presents with bilateral ear pain for 6 days left worse than right. Patient was seen here 09/17 for upper respiratory symptoms. Patient reports a lingering congestion and cough. Patient was given albuterol inhaler. Patient has been taking [id number] medication with no relief. Denies any fever, chills, nausea, vomiting, diarrhea. MD Complaint: ear pain Related Data Home Medications ?Medication ?Instructions ?Recorded ?Confirmed ?Last Taken ?Type bupropion HCl 300 mg 24 hr tablet, mg PO 10/03/24 Unknown History extended release cariprazine 1.5 mg capsule mg 10/03/24 Unknown History (Vraylar) escitalopram oxalate 20 mg tablet mg 10/03/24 Unknown History lisinopril 5 mg tablet mg 10/03/24 Unknown History metoprolol tartrate 25 mg tablet mg 10/03/24 Unknown History naltrexone 50 mg tablet mg 10/03/24 Unknown History omeprazole 20 mg capsule,delayed mg 10/03/24 Unknown History release topiramate 25 mg tablet mg 10/03/24 Unknown History trazodone 100 mg tablet mg 10/03/24 Unknown History Allergies Allergy/AdvReac Type Severity Reaction Status Date / Time No Known Allergies Allergy Verified 10/03/24 13:37 Review of Systems Review of Systems: All systems reviewed & are unremarkable except as noted in HPI and below Constitutional: Constitutional: Denies body ache(s), Denies chills, Denies fever(s), Denies headache(s) and Denies malaise Eyes: Eyes: Denies blurry vision, Denies eye discharge and Denies irritation ENT: Reports otalgia, Denies headache(s), Reports nasal congestion, Denies nasal discharge and Denies sore throat Cardiovascular: Cardiovascular: Denies chest pain, Denies edema, Denies palpitations and Denies dyspnea on exertion Respiratory: Respiratory: Reports cough and Denies dyspnea on exertion Gastrointestinal: Gastrointestinal: Denies abdominal pain, Denies diarrhea, Denies nausea and Denies vomiting Musculoskeletal: Musculoskeletal: Denies back pain, Denies arthralgias and Denies muscle weakness Integumentary/Breasts: Skin/Breast: Denies pruritus and Denies rash Neurologic: Denies headache(s) Psychiatric: Psychiatric: Reports no additional psychiatric complaints Endocrine: Endocrine: Denies palpitations PMFSH Comments At time of signature, agree with nursing past medical, surgical, social and family history. There is no relevant family history pertinent to the presenting complaint? Exam Const: General: cooperative, healthy appearing, no acute distress and well nourished Nutritional Appearance: well nourished Orientation/consciousness: patient oriented x3 Limitations: no limitations HENMT: Head: normal to inspection, normocephalic and atraumatic Ears: hearing grossly normal bilaterally, EAC's normal, no periauricular adenopathy and TM abnormal bulging on the left and erythematous on the left Face/Nose/Sinus: Normal external nose present, Normal nares present, Normal nasal mucous membranes and turbinates present, No nasal discharge present, normal facial exam and sinuses nontender Face and sinus: normal facial exam and sinuses nontender Mouth: Yes Normal oral and palatal mucosa present, Yes lip normal, Yes tongue normal and Yes moist mucous membranes Throat: posterior oropharynx normal, tonsils normal and uvula midline Eyes: General: appearance normal, both eyes and all related structures Alignment and Position: alignment normal and position normal Eyelids: eyelids normal Pupils: Equal, round and reactive pupils present EOM: EOMs intact bilaterally Neck: Neck: normal visual inspection, full ROM, no lymphadenopathy and supple Chest: Chest palpation & inspection: normal inspection of the chest Resp: Effort & Inspection: normal respiratory effort and able to speak in complete sentences Auscultation: clear to auscultation bilaterally, no crackles, no rales, no rhonchi and no wheezes Cardio: Rate: regular rate Rhythm: regular rhythm Heart sounds: S1 normal heart sound present and S2 normal heart sound present Skin: General skin exam: normal color and no rashes or lesions noted Neuro: General: patient oriented x3 and moves all extremities Cranial nerves: Yes Equal, round and reactive pupils present Cognition (Neuro): normal cognition Speech: normal speech Gait exam (Neuro): Normal gait present Extrem: General: normal to inspection and full ROM Psych: Appearance: grossly normal and well kempt Mental Status: mental status grossly normal Speech and movement: Normal speech and movement present Course Course Emergency Course: Patient is aware of diagnosis, understands and agrees to treatment plan.? Anticipatory guidance given.? Patient agrees to follow-up as directed and is aware of reasons to seek care at the emergency department.? Portions of this record may have been created with voice recognition software? Level of Care: Express Care Visit Vital Signs Vital signs: Reviewed Medical Decision Making MDM Narrative Medical decision making narrative: Pt well hydrated appearing, in no respiratory distress, hemodynamically stable. Recommend supportive care. The patient is stable at time of discharge the clinical impression was discussed and the patient was given the opportunity to ask questions, which were addressed as completely as possible given the information available at present. Anticipatory guidance and return to care precautions were discussed and the importance of primary care follow-up was stressed and encouraged. The patient voiced understanding of the plan, indications to return, and the need for follow-up. Exam findings show no acute concerns or changes Patient is appropriate for outpatient treatment and follow-up. Differential diagnosis considered: otitis media, otitis externa, otitis effusion, foreign body, cerumen impaction, viral syndrome Medical Records Medical records reviewed: Yes I reviewed the external patient's medical records. Discharge Plan Discharge Clinical Impression: Otitis media Qualifiers: Otitis media type: suppurative Chronicity: acute Laterality: left Recurrence: non-recurrent Spontaneous tympanic membrane rupture: without spontaneous rupture Qualified Code(s): H66.002 - Acute suppurative otitis media without spontaneous rupture of ear drum, left ear Cough Qualifiers: Cough type: acute Qualified Code(s): R05.1 - Acute cough Patient Disposition: Home Condition: Stable Instructions: Ear Infection (GEN) Additional Instructions: Take antibiotics as directed. Recommend antihistamine such as Benadryl at night time and Zyrtec or Isabell during the day until symptoms improve Flonase nasal spray, 1 spray in each nostril once daily until symptoms improve Also, recommend symptomatic treatment includes: rest, fluids, and increase humidity of the air at home. Recommend Acetaminophen as directed on the bottle to reduce fever, pain Please schedule a follow-up visit with your personal physician for further evaluation and treatment within 3-5days. If your symptoms persist, change or worsen significantly before you can contact your personal physician then please, without delay, go to the emergency department for further evaluation. Patient Language: Sri Lankan Prescriptions: New benzonatate 100 mg capsule 100 mg PO BID PRN (Reason: cough) Qty: 14 0RF amoxicillin-pot clavulanate 875-125 mg tablet 1 tablet PO Q12H 10 Days Qty: 20 0RF No Action albuterol sulfate 90 mcg/actuation HFA aerosol inhaler 2 puff inhalation Q4-6H PRN (Reason: shortness of breath or wheezing) 30 Days Qty: 8.5 0RF naltrexone 50 mg tablet topiramate 25 mg tablet trazodone 100 mg tablet omeprazole 20 mg capsule,delayed release(DR/EC) lisinopril 5 mg tablet escitalopram oxalate 20 mg tablet bupropion HCl 300 mg tablet extended release 24 hr PO metoprolol tartrate 25 mg tablet Vraylar 1.5 mg capsule Follow-up/Referrals: Pancho,AHSAN Samayoa [Primary Care Provider] - 3 Days Stand Alone Forms: Work/School Release IP Time of Disposition: 13:46
--- OUTSIDE RECORDS SUMMARY | 2024-10-03 13:32 | XMS_ITS | Encounter Summary ---
Author Organization [facility] Address [address] [place] [address] Care Team Providers Care Pillow Cleaner Name Role Phone Summer Deleon NP Primary Care Provider [phone] Encounter Details Date Type Department Care Team ([facility] Contact Info) Description 08/31/2024 Results Follow-Up [facility] [address] [address] Summer Deleon NP [address] [address] HEMOGLOBIN, GLYCOSYLATED, TSH W/REFLEX, LIPID [...] Upcoming Encounters Date Type Department Care Team ([facility] Contact Info) Description 12/02/2024 3:00 PM CDT Office Visit [facility] [address] [facility] [address] [place] [address] Summer Deleon NP [address] [place] [address] 03/30/2025 1:20 PM SHOULDER PAD MOLDER Office Visit [facility] [address] [facility] [place] [address] Omar Ramos MD 3rd [facility] [address] [place] [address] documented as of this encounter Visit Diagnoses Not on filedocumented in this encounter Additional Health Concerns Assessment Noted Time PHQ-9 Depression Total Score: 14 025 2:28 PM CDT documented as of this encounter Care Teams Pillow Cleaner Relationship Specialty Start Date End Date Summer Deleon NP [address] [place] [address] PCP - General NURSE PRACTITIONER 12/09/21 documented as of this encounter
--- OUTSIDE RECORDS SUMMARY | 2024-10-03 13:32 | XMS_ITS | Patient Health Record ---
Author Organization [facility] Address [address] [place] [address] Care Team Providers Care Sales Representative Jewelry Name Role Phone RUPERTO Quezada Primary Care Provider [phone] Reason For Referral No Information Medications Medication SIG (Take, Route, Frequency, Duration) Notes Start Date End Date Status Escitalopram Oxalate 20 MG Tablet TAKE 1 TABLET BY MOUTH EVERY DAY; Duration: 30 Active Tobramycin 0.3 % Solution 1 drop into af fected eye Ophthalmic every 6 hrs; Duration: 5 days 06/11/2020 Active Claritin 10 MG Tablet 1 tablet Orally On ce a day; Duration: 30 day(s) 01/28/2019 Active Omeprazole 20 MG Capsule Delayed Release TAKE 1 CAPSULE BY MOUTH ONCE DAILY 30 MINUTES BEFORE MORNING; Duration: 30 Active Metoprolol Tartrate 25 MG Tablet 1 tablet with food Orally Twice a day; Duration: 90 days Active Ciclopirox 8 % Solution USE 1 APPLICATIO N TO AFFECTED AREA ONCE DAILY *REMOVE ONCE A WEEK*; Duration: 30 Not-Taking Penlac 8 % Solution 1 application to affected area Externally Apply Once a day, remove once a week; Duration: 6 months days 07/11/2019 Not-Taking traZODone HCl 100 MG Tablet 1 tablet at bedtime Orally Once a day; Duration: 90 days Active Social History Tobacco Use: Social History Observation Description Date Details (start date - stop date) Never Smoker NA - NA Sex Assigned At : Social History Observation Description Sex Assigned At Female Social History *DoNotUse Social Info Question Answer Notes Pain Assessment Does pain exist today? No Behavioral Health and Miscel laneous Social Info Question Answer Notes Generalized Anxiety Disorder (BRADLY-7) Feeling nervous anxious or on edge (1) Several days Not being able to stop or control worrying (0) N ot at all sure Worrying too much about different things (1) Sev eral days Trouble relaxing (0) Not at all sure Being so restless that it's hard to sit still (0 ) Not at all sure Being easily annoyed or irritable (1) Several da ys Feeling afraid as if something awful might happe n (1) Several days Total score 4 Caffeine/Drugs/Alcohol/COW/B AM: Social Info Question Answer Notes Alcohol Screen (Audit-C) Did you have a drink containing alcohol in the past year? Yes How often did you have a drink containing alcohol in the past year? Monthly or less (1 point) How many drinks did you have on a typical day when you were drinking in the past year? 1 or 2 drinks (0 point) How often did you have 6 or more drinks on one occasion in the past year? Never (0 point) Points 1 Interpretation Negative Drugs Have you used drugs other than those for medical reasons in the past? No SBIRT Do you sometimes drink beer, wine, or oth er alcoholic beverages? Yes How many times in the past year have you had 5 or more drinks (men under 65) or 4 or more drinks (women or men 65 or older) in one day? 0 On average, how many days in a week do you have an alcoholic drink? 1 On a typical drinking day, how many drinks do you have? 2 Average drinks per week? 0 Total Score for Previous 5 Questions? 0 How many times in the past year have you used an illegal drug or used a prescription medication for non-medical reasons? 0 Tobacco Use: Social Info Question Answer Notes Previous Version Tobacco Screening Are you a nonsmo ker Tobacco use other than smoking: Are you an other tobac co user? No Additional Details Category Social Info Options Details Caffeine/Drugs/Alcohol/COW/BAM: Do you drink alcohol? Socially Section Notes: m edica Problems Problem Type SNOMED Code ICD Code Onset Dates Problem Status W/U Status Risk Notes Problem Generalized anxiety disorder (33691040) Generalized anxiety disorder (F41.1) Active confirmed Other anxiety disorders Problem Mixed hyperlipidemia (905706681) Mixed hyperlipidemia (E78.2) Active confirmed Problem Body mass index 35.00 to 39.99 (972616377874906) Body mass index (BMI) of 36.0-36.9 in adult (Z68.36) Active confirmed Problem Gastroesophageal reflux disease (594829580) GERD without esophagitis (K21.9) Active confirmed Problem Palpitations (35991954) Heart palpitations (R00.2) Active confirmed Problem Obesity (155133335) Obesity (BMI 30-39.9) (E66.9) Active confirmed Problem Onychomycosis (276765517) Onychomycosis (B35.1) Active confirmed Problem Insomnia (357572929) Insomnia, unspecified type (G47.00) Active confirmed Problem Anxiety (06192519) Anxiety (F41.9) Active confi rmed Problem Seasonal allergy (534837738) Seasonal allergies (J30.2) Active confirmed Problem Obstructive sleep apnea (29290475) Obstructive sleep apnea (G47.33) Active confirmed Problem Dysphagia (77969641) Dysphagia, unspecified type (R13.10) Active confirmed Problem 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 Plan Of Treatment Pending Test Test Name Order Date BEHAV CHNG SMOKING 3-10 MIN 07/02/2019 COMPREHENSIVE METABOLIC PANEL W/O eGFR 1 03/31/2018 CBC (INCLUDES DIFF/PLT) WITH Peripheral SMEAR REVIEW 07/01/2019 TSH W/REFLEX TO FT4 07/01/2019 SKIN BIOPSY, (2 JARS) 5603-6 03/12/2018 Electrocardiogram 03/11/2019 SHAVE SKIN LESION 03/12/2018 TOBACCO USE ASSESSED 09/24/2019 TOBACCO USE ASSESSED 07/15/2019 TOBACCO USE ASSESSED 07/11/2019 TOBACCO NON-USER 07/11/2019 TOBACCO NON-USER 07/15/2019 TOBACCO NON-USER 09/24/2019 TOBACCO NON-USER 01/07/2019 TOBACCO NON-USER 07/01/2019 SYS BP 130 - 139MM HG 01/28/2019 SYS BP 130 - 139MM HG 01/07/2019 SYS BP 130 - 139MM HG 07/02/2019 SYS BP 130 - 139MM HG 07/15/2019 SYST BP >/= 140 MM HG 07/01/2019 SYST BP < 130 MM HG 09/24/2019 SYST BP < 130 MM HG 07/11/2019 DIAST BP 80-89 MM HG 01/28/2019 DIAST BP 80-89 MM HG 07/01/2019 DIAST BP < 80 MM HG 01/07/2019 DIAST BP < 80 MM HG 09/24/2019 DIAST BP < 80 MM HG 07/11/2019 DIAST BP < 80 MM HG 07/15/2019 DIAST BP < 80 MM HG 07/02/2019 DME SUPPLY OR ACCESSORY, NOS 02/28/2018 ALCOHOL/SUBS INTERV 15-30 MIN 07/01/2019 ALCOHOL/SUBS INTERV 15-30 MIN 01/28/2019 ALCOHOL/SUBS INTERV 15-30 MIN 07/11/2019 Functional Status [...] severity Quantified- No pain presen t 09/24/2019 Pain severity Quantified- No pain presen t 01/07/2019 Advance Care Planning Discussion Michelle rios in the medical record 01/07/2019 Advance Care Planning Discussion Michelle rios in the medical record 07/01/2019 Screening for depression documented as n egative, so f/u is not required 01/28/2019 Medication Review 01/28/2019 Medication Review 07/01/2019 Medication Review 01/07/2019 Medication Review 09/24/2019 Medication Review 07/11/2019 Medication Review 07/15/2019 Medication Review 07/02/2019 Allergies Reviewed 07/02/2019 Allergies Reviewed 07/15/2019 Allergies Reviewed 07/11/2019 Allergies Reviewed 09/24/2019 Allergies Reviewed 01/07/2019 Allergies Reviewed 07/01/2019 Allergies Reviewed 01/28/2019 Insurance Providers Payer Name Payer Address Payer Phone Subscriber Number Group Number Insured Name Patient Relationship to Insured Coverage Start Date Coverage End Date [facility] [address] [address] [place] [address] [id number] Andrew Atnony Self - patient is the insured [facility] [facility] [employer] [address] [place] [address] [id number] Andrew Antony Self - patient is the insured Medical (General) History Medical History History ICD Code palpitations anxiety Gerd Surgical History Surgery Date(Month/Year) Hospitalization History Reason Date(Month/Year)
--- OUTSIDE RECORDS SUMMARY | 2024-10-03 13:32 | XMS_ITS | Patient Health Record ---
Author Organization [facility] Address [address] [place] [id number] Care Team Providers Care Lumber Salvager Name Role Phone Renea Mansfield Primary Care Provider Allergies Allergen (clinical drug ingredient) Drug/Non Drug Allergy documented on EMR Reaction Allergy Type Onset Date Status No Environmental Allergies (uncoded) Unknown Allergy Active No Known Drug Allerg ies (uncoded) Unknown Allergy Active No Known Food Allerg ies (uncoded) Unknown Allergy Active Reason For Referral No Information Medications Medication SIG (Take, Route, Fr equency, Duration) Notes Start Date End Date Status Omeprazole 20 MG TAKE 1 CAPSULE BY [facility] DAILY; Duration: 30 Active busPIRone HCl 10 MG 1 tablet Orally Twic e a day PRN; Duration: 30 days 04/17/2016 Active Social History Tobacco Use: Social History Observation Description Date Details (start date - stop date) Never Smoker NA - NA Tobacco Use/Smoking Question Answer Notes Are you a nonsmoker Problems Problem Type SNOMED Code ICD Code Onset Dates Problem Status W/U Status Risk Notes Problem Body mass index 30.00 to 34.99 (72517826102951 7) Body mass index (BMI) 31.0-31.9, adult (Z68.31) Active confirmed Problem Anxiety (32482530) Anxiety (F41.9) Active confirmed Problem Esophageal reflux (785095637) Esophageal reflux (K21.9) Active confirmed Problem Dizzy (257174642) Dizzy (R42) Active confirmed Problem Disorder of adrenal gland (01798392) Disorder of adrenal gland (E27.9) Active confirmed Problem Sprain of ankle (79969087) Unspecified site of ankle sprain and strain (845.00) Active confirmed (PHONG) Plan Of Treatment Pending Test Test Name Order Date CBC With Differential/Platelet 11/08/201 6 Pap IG, HPV-hr 04/17/2016 CMP12+LP 01/04/2016 EKG and interperate ( ecg ) 01/04/2016 Insurance Providers Payer Name Payer Address Payer Phone Subscriber Number Group Number Insured Name Patient Relationship to Insured Coverage Start Date Coverage End Date [employer] [address] [place] [address] [id number] Andrew Antony Self - patient is the insured Medical (General) History Medical History History ICD Code Ankle strain right initial encounter: IC [id number] Reflux Surgical History Surgery Date(Month/Year)
--- OUTSIDE RECORDS SUMMARY | 2024-10-03 13:32 | XMS_ITS | Clinical Summary ---
Author Organization [facility] Address [facility] [place] [address] Care Team Providers Care Business Machine Operator Name Role Phone Summer Deleon NP Primary Care Provider [phone] Allergies No known active allergies Medications intrauterine copper (PARAGARD) IUD 1 each by Intrauterine route once. Active melatonin 5 MG tablet Take 1 tablet (5 mg total) by mouth nightly as needed. Active cranberry 450 MG Tab tablet Take 1 tablet (450 mg total) by mouth. Active Ascorbic Acid (VITAMIN C OR) Activ e VITAMIN D OR Active APPLE CIDER VINEGAR OR Active metoprolol tartrate (LOPRESSOR) 25 MG tabletIndicatio ns:Palpitations TAKE 1 TABLET(25 MG) BY MOUTH TWICE DAILY 30 tablet 07/31/19 25 Active buPROPion XL (WELLBUTRIN XL) 300 MG 24 hr tabletIndicatio ns:Anxiety and depression Take 1 tablet (300 mg total) by mouth daily. 30 tablet 07/31/19 25 Active cariprazine (VRAYLAR) 1.5 MG capsuleIndicati ons:Severe recurrent major depression without psychotic features (CMS/HCC HHS/HCC) Take 1 capsule (1.5 mg total) by mouth daily. 90 capsule 1 09/03/19 25 Active lisinopril (PRINIVIL) 5 MG tabletIndicatio ns:Hypertension , unspecified type Take 1 tablet (5 mg total) by mouth daily. 90 tablet 1 09/03/19 25 Active omeprazole (PRILOSEC) 20 MG capsuleIndicati ons:Gastroesoph ageal reflux disease without esophagitis Take 1 capsule (20 mg total) by mouth daily. 90 capsule 1 09/04/19 25 Active naltrexone (DEPADE) 50 MG tabletIndicatio ns:Class 3 severe obesity with body mass index (BMI) of 40.0 to 44.9 in adult (CMS/[facility]) Take 0.5 tablets (25 mg total) by mouth daily. 90 tablet 1 09/16/19 25 Active topiramate (TOPAMAX) 25 MG tabletIndicatio ns:Class 3 severe obesity with body mass index (BMI) of 40.0 to 44.9 in adult ([facility]) Take 1 tablet (25 mg total) by mouth 2 (two) times daily. 180 tablet 1 09/16/19 25 Active traZODone (DESYREL) 100 MG tabletIndicatio ns:Insomnia, unspecified type Take 1 tablet (100 mg total) by mouth nightly at bedtime. 30 tablet 10/01/19 25 Active escitalopram (LEXAPRO) 20 MG tabletIndicatio ns:Anxiety and depression Take 1 tablet (20 mg total) by mouth daily. 90 tablet 1 10/01/19 25 Active escitalopram (LEXAPRO) 20 MG tabletIndicatio ns:Anxiety and depression TAKE 1 TABLET(20 MG) BY MOUTH DAILY 90 tablet 1 02/18/20 24 025 Discontin ued(Reord er) traZODone (DESYREL) 100 MG tabletIndicatio ns:Insomnia, unspecified type Take 1 tablet (100 mg total) by mouth nightly at bedtime. 30 tablet 07/31/19 25 025 Discontin ued(Reord er) Active Problems Problem Noted Date Diagnosed Date [...] exacerbate snoring and sleep-related problems, such as BUILDING AND CONSTRUCTION MANAGER depressants, especially at bedtime. Tachycardia 08/31/2024 Assessment [...] Encounters Date Type Department Care Team Description 09/30/2024 Orders Only [address] [place] [address] Edita Cramer MA 09/30/2024 Orders Only [address] [place] [address] Edita Cramer MA 09/17/2024 Scan [employer] INFO SRVCS Scanned, Doc [facility] Image (SCAN) 09/12/[address] [place] [address] Summer Deleon NP Medication Request 09/03/2024 Orders Only [address] [place] [address] Edita Cramer MA 09/02/2024 Orders Only [address] [place] [address] Edita Cramer MA 08/31/2024 Results Follow-Up [address] [place] [address] Summer Deleon NP HEMOGLOBIN, GLYCOSYLATED, TSH W/REFLEX, LIPID PANEL, Additional followed-up results: 4 08/28/2024 2:20 PM CDT Office Visit [address] [place] [address] Summer Deleon NP Annual (Patient presents for an adult routine exam) 08/28/2024 Travel 08/04/[address] [place] [address] Summer Deleon NP Medication 07/07/2024 Orders Only [place] [address] [place] [address] Edita Cramer MA from Last 3 Months [...] Description 12/02/2024 3:00 PM CDT Office Visit [place] [id number] [facility] [address] [place] [address] Summer Deleon, MARCELLE [address] [place] [address] 03/30/2025 1:20 PM MANAGER MEDICAL Office Visit [facility] [address] [facility] [place] [address] Omar Ramos MD [address] [place] [address] Health Maintenance Due Date Last Done Comments [...] Refused) Hepatitis C Completed 12/22/2021 PHQ-2 (Physician [place]) Completed 08/28/2024 Meningococcal B Vaccine Aged Out [...] Procedure Name Priority Date/Time Associated Diagnosis Comments IMAGE GENERIC 09/17/2024 COLLECTION VENOUS BLOOD VENIPUNCTURE Routine 08/28/2024 3:19 [...] Recently Relevant to Health Maintenance Results * IMAGE GENERIC (09/17/2024) Anatomical Region Laterality Modality Other 09/17/2024 us Doc [facility] Scanned SCANNING Final Resu lt * TSH W/REFLEX (08/28/2024 3:19 PM CDT) TSH 2.392 0.358 - 3.740 uIU/ML 08/29/2024 10:15 AM CDT -[facility] 08/28/2024 3:19 PM CDT us Summer Deleon WATERWORKS SUPERVISOR LABORATORY Final Res ult Performing Organization Address [facility] Co de Phone Number [facility] [address] [place] [address], [place] [phone] * (ABNORMAL) HEMOGLOBIN, GLYCOSYLATED (08/28/2024 3:19 PM CDT) HGB A1C 5.5 4.5 - 6.2 % 08/29/2024 10:27 AM CDT [facility] ESTIMATED AVG GLUCOSE 111(H) 74 - 106 MG/DL 08/29/2024 10:27 AM CDT [facility] 08/28/2024 3:19 PM CDT Summer Deleon WATERWORKS SUPERVISOR LABORATORY Final Res ult Performing Organization Address [facility] de Phone Number [place] [address] [place] [address], [place] [phone] * (ABNORMAL) IRON SAT PANEL (IRON,IBC,%SAT) (08/28/2024 3:19 PM CDT) IRON 31(L) 50 - 170 MCG/DL 09/01/2024 12:54 PM CDT [facility] IRON BINDING CAPACITY 400 250 - 450 MCG/DL 09/01/2024 12:54 PM CDT [facility] IRON SATURATION 8 % 12:54 PM CDT [facility] Comment:REFERENCE RANGE NOT ESTABLISHED 08/28/2024 3:19 PM CDT Summer Deleon WATERWORKS SUPERVISOR LABORATORY Final Res ult Performing Organization Address [facility] Co de Phone Number [facility] [address] [place] [address], [place] [phone] * (ABNORMAL) COMPREHENSIVE METABOLIC PANEL (08/28/2024 3:19 PM CDT) [facility] SODIUM S/P/B 138 136 - 145 MMOL/L 08/29/2024 10:15 AM CDT [facility] POTASSIUM S/P/B 4.3 3.5 - 5.1 MMOL/L 08/29/2024 10:15 AM CDT [facility] CHLORIDE S/P/B 101 98 - 107 MMOL/L 08/29/2024 10:15 AM CDT [facility] CO2 27.2 21 - 32 MMOL/L 08/29/2024 10:15 AM CDT [facility] GLUCOSE 93 70 - 99 MG/DL 08/29/2024 10:15 AM CDT [facility] BUN 7 7 - 18 MG/DL 08/29/2024 10:15 AM CDT [facility] CREATININE S/P/B 0.85 0.55 - 1.02 MG/DL 08/29/2024 10:15 AM CDT [facility] CALCIUM S/P/B 8.2(L) 8.4 - 10.5 MG/DL 08/29/2024 10:15 AM CDT [facility] BILIRUBIN TOTAL S/P/B 0.3 0.2 - 1.0 MG/DL 08/29/2024 10:15 AM CDT [facility] ALKALINE PHOSPHATASE S/P/B 92 37 - 98 U/L 08/29/2024 10:15 AM CDT [facility] AST 47(H) 15 - 37 U/L 08/29/2024 10:15 AM CDT [facility] ALT 51 14 - 59 U/L 08/29/2024 10:15 AM CDT [facility] TOTAL PROTEIN S/P/B 6.4 6.4 - 8.2 G/DL 08/29/2024 10:15 AM CDT [facility] ALBUMIN S/P/B 3.2(L) 3.4 - 5.0 G/DL 08/29/2024 10:15 AM CDT [facility] ANION GAP 9.8 5 - 15 MMOL/L 08/29/2024 10:15 AM CDT [facility] Comment:REFERENCE RANGE NOT ESTABLISHED OSMOLALITY (CALC) 284 MOSM/KG 025 10:15 AM CDT [facility] Comment:REFERENCE RANGE NOT ESTABLISHED GFR ESTIMATE 90(L) >90 ML/MIN/1. 73 M2 08/29/2024 10:15 AM CDT [facility] GFR NOTES GFR REFERENCE S: 08/29/2024 10:15 AM CDT [facility] Comment: THE ESTIMATED GFR IS CALCULATED USING [...] 08/28/2024 3:19 PM CDT us Summer Deleon WATERWORKS SUPERVISOR LABORATORY Final Res ult [facility] [address] [place] [address], * (ABNORMAL) LIPID PANEL (08/28/2024 3:19 PM CDT) CHOLESTEROL 228(H) <200 MG/DL 08/29/2024 10:15 AM CDT [facility] TRIGLYCERIDES 250(H) <150 MG/DL 08/29/2024 10:15 AM CDT [facility] HDL 38(L) >40 MG/DL 08/29/2024 10:15 AM CDT [facility] LDL-C 140(H) <100 MG/DL 08/29/2024 10:15 AM CDT [facility] VLDL CALCULATION 50(H) 5 - 28 MG/DL 08/29/2024 10:15 AM CDT [facility] CHOL/HDL RATIO 6.0(H) 0.0 - 4.0 08/29/2024 10:15 AM CDT [facility] LDL/HDL 3.7(H) 0.41 - 2.13 08/29/2024 10:15 AM CDT [facility] NON HDL CHOLESTEROL 190(H) <140 MG/DL 08/29/2024 10:15 AM CDT [facility] 08/28/2024 3:19 PM CDT us Summer Deleon WATERWORKS SUPERVISOR LABORATORY Final Res ult [facility] [address] [place] [address], * (ABNORMAL) CBC W/DIFF AUTOMATED (08/28/2024 3:19 PM CDT) WBC 9.64 4.00 - 10.80 x10'3/uL 08/29/2024 8:26 AM CDT [facility] RBC 4.47 4.10 - 5.40 x10'6/uL 08/29/2024 8:26 AM CDT [facility] HGB 11.5(L) 12.0 - 16.0 G/DL 08/29/2024 8:26 AM CDT [facility] HCT 37.1 36.0 - 47.0 % 08/29/2024 8:26 AM CDT [facility] MCV 83.0 78.0 - 100.0 FL 08/29/2024 8:26 AM CDT [facility] MCH 25.7(L) 27.0 - 31.0 PG 08/29/2024 8:26 AM CDT [facility] MCHC 31.0(L) 33.0 - 36.0 G/DL 08/29/2024 8:26 AM [facility]T [facility] RDW 14.7(H) 11.5 - 14.5 % 08/29/2024 8:26 AM CDT [facility] PLT 226 150 - 350 x10'3/uL 08/29/2024 8:26 AM CDT [facility] MPV 9.8 7.4 - 10.4 FL 08/29/2024 8:26 AM CDT [facility] DIFFERENTIAL TYPE AUTOMATED DIFFERENTIAL 08/29/2024 8:26 AM CDT [facility] NEUTROPHILS % 77.5 % 08/29/2024 8:26 AM CDT [facility] LYMPHOCYTES % 14.3 % 08/29/2024 8:26 AM CDT [facility] MONOCYTES % 6.2 % 08/29/2024 8:26 AM CDT [facility] EOSINOPHILS % 0.3 % 08/29/2024 8:26 AM CDT [facility] BASOPHILS % 0.4 % 08/29/2024 8:26 AM CDT [facility] IMMATURE GRANS % 1.3 % 08/29/2024 8:26 AM CDT [facility] ABS. NEUTROPHILS 7.46 1.60 - 8.30 x10'3/uL 08/29/2024 8:26 AM CDT [facility] ABS. LYMPHOCYTES 1.38 0.80 - 4.70 x10'3/uL 08/29/2024 8:26 AM CDT [facility] ABS. MONOCYTES 0.60 0.00 - 1.50 x10'3/uL 08/29/2024 8:26 AM CDT [facility] ABS. EOSINOPHILS 0.03 0.00 - 0.40 x10'3/uL 08/29/2024 8:26 AM CDT [facility] ABS. BASOPHILS 0.04 0.00 - 0.20 x10'3/uL 08/29/2024 8:26 AM CDT [facility] ABS. IMMATURE GRANULOCYTES 0.13(H) 0.00 - 0.03 x10'3/uL 08/29/2024 8:26 AM CDT [facility] 08/28/2024 3:19 PM CDT Summer Deleon WATERWORKS SUPERVISOR LABORATORY Final Res ult [facility] [address] [place] [phone], * FERRITIN (08/28/2024 3:19 PM CDT) Pathologist [facility] FERRITIN 24.0 8 - 252 NG/ML 09/01/2024 12:54 PM CDT [facility] 08/28/2024 3:19 PM CDT Summer Deleon WATERWORKS SUPERVISOR LABORATORY Final Res ult [address] [address], * HEPATITIS C ANTIBODY (12/22/2021 10:10 AM CDT) Pathologist [facility] HEPATITIS C AB NON-REACTI VE NON-REACT PACO 12/22/2021 8:10 PM CDT [facility] Comment: ANTIBODIES TO HCV NOT DETECTED. DOES NOT EXCLUDE THE POSSIBILITY OF EXPOSURE TO HCV. 12/22/2021 10:1 0 AM CDT Summer Deleon WATERWORKS SUPERVISOR LABORATORY Final Res ult [facility] [address] [place] [address], [phone] from Last 3 Months or Most Recently Relevant to Health Maintenance Insurance [employer] Care Teams Business Machine Operator Relationship Specialty Start Date End Date Summer Deleon NP [address] [place] [address] PCP - General NURSE PRACTITIONER 12/09/21
--- OUTSIDE RECORDS SUMMARY | 2024-10-03 13:32 | XMS_ITS | Clinical Summary ---
Author Organization [employer] [facility] Address [address] Rodriguez: Epic Prelude ADT [place] [address] Care Team Providers Care Senior Firmware Engineer Name Role Phone Unavailable Primary Care Provider [...]
[2024-10-03 13:36] VITALS: BP 141/98; PULSE 94; RESP 20; TEMP 35.9; O2SAT 99
== END 2024-10-03 13:48 | disposition home or self-care (01) ==
PROVIDERS: Emergency Provider Nurse Practitioner Family; PCP Nurse Practitioner
DX: H66.002 Acute suppurative otitis media without spontaneous rupture of ear drum, left ear (principal); R05.1 Acute cough; I10 Essential (primary) hypertension; K21.9 Gastro-esophageal reflux disease without esophagitis; F41.9 Anxiety disorder, unspecified; F32.A Depression, unspecified
CPT/HCPCS: 99213; G0463